=== PATIENT | male | born 1985 | race Two or more races ===

== ENCOUNTER 2019-01-23 01:58 | Emergency (ER) | payer OTHER ==
[~2019-01-23] VITALS: Ht 162.6 cm; Wt 53.5 kg
--- NOTE | 2019-01-23 02:46 | NUR ---
Dr. River at bedside for examination
--- NOTE | 2019-01-23 03:04 | NUR ---
Patient discharged to home in stable conditon. Written and verbal after care instructions given. Patient verbalizes understanding of instructions. patient self ambualtory with steady gait. exit care package and personal belongings taken with patient at discharge. patient in stable condition and VSS.
[2019-01-23 03:06] VITALS: BP 125/70
== END 2019-01-23 03:06 | disposition home or self-care (01) ==
LOC: ER 02:02
DX: B80 Enterobiasis (principal)
CPT/HCPCS: A4663